=== PATIENT | female | born 1960 | race Asian ===

== ENCOUNTER 2022-01-20 13:21 | Emergency (ER) | payer MEDICAID ==
[~2022-01-20] VITALS: Ht 149.9 cm; Wt 56.7 kg
[2022-01-20 13:36] VITALS: BP 125/78
== END 2022-01-20 14:53 | disposition home or self-care (01) ==
LOC: ER 13:25
DX: H43.391 Other vitreous opacities, right eye (principal); I10 Essential (primary) hypertension

== ENCOUNTER 2022-03-06 16:08 | Emergency (ER) | payer SELFPAY ==
[~2022-03-06] VITALS: Ht 152.4 cm; Wt 57.2 kg
--- NOTE | 2022-03-06 16:36 | NUR ---
DR BYRNE AT BEDSIDE
[2022-03-06] MEDS ORDERED: CETI-90 PO (16:43)
--- NOTE | 2022-03-06 16:43 | NUR ---
SALES [employer] AT BEDSIDE
[2022-03-06] MEDS ORDERED: ONDANSETRON HCL/PF - ER 4 MG/2 ML VIAL IV ONE (17:30)
[2022-03-06] MEDS ORDERED: IV NS 0.9% 1,000 ML BAG IV ONE (17:30)
[2022-03-06] MEDS ORDERED: ONDANSETRON HCL/PF 4 MG/2 ML VIAL ONE (17:34)
--- NOTE | 2022-03-06 17:37 | NUR ---
PATIENT IN CT SCAN
[2022-03-06 17:46] LABS: BASOPHILS % (AUTO) 0.6 % (0.0-2.0); EOSINOPHILS % (AUTO) 0.7 % (0.0-6.0); HEMATOCRIT 40 % (33-45); HEMOGLOBIN 13.6 g/dL (11.5-14.8); LYMPHOCYTES # (AUTO) 1.8 K/uL (0.8-4.8); LYMPHOCYTES % (AUTO) 35.6 % (20.0-44.0); MEAN CORPUSCULAR HGB CONC 34 g/dl (31.0-36.0); MEAN CORPUSCULAR VOLUME 88 fL (82-100); MONOCYTES # (AUTO) 0.4 K/uL (0.1-1.30); MONOCYTES % (AUTO) 8.8 % (2.0-12.0); NEUTROPHILS # (AUTO) 2.7 K/uL (1.8-8.9); NEUTROPHILS % (AUTO) 54.3 % (43.0-81.0); PLATELET COUNT (AUTO) 233 K/uL (150-450); RED BLOOD CELL COUNT(AUTO) 4.57 MIL/uL (4.0-5.2)
[2022-03-06 18:09] LABS: CALCIUM, SERUM 8.8 mg/dL (8.5-10.1); CARBON DIOXIDE 30 mmol/L (21-32); CHLORIDE 100 mmol/L (98-107); CREATININE 1.1 mg/dL (0.6-1.3); GLUCOSE 159 mg/dL (74-106); POTASSIUM 2.9 mmol/L (3.5-5.1); SODIUM SERUM 140 mmol/L (136-145); UREA NITROGEN, BLOOD 13 mg/dL (7-18)
[2022-03-06 18:11] LABS: BILIRUBIN,DIRECT 0.1 mg/dL (0.0-0.2); BILIRUBIN,TOTAL 0.4 mg/dL (0.2-1.0)
[2022-03-06] MEDS ORDERED: POTA-58 PO (18:55)
[2022-03-06] MEDS ORDERED: POTASSIUM CHLORIDE 20 MEQ TAB.PRT.SR PO ONE ×2 (19:00→19:07)
--- NOTE | 2022-03-06 19:00 | NUR ---
IV removed. Catheter intact and site benign. Pressure and 4x4 applied to site. No bleeding noted.
--- NOTE | 2022-03-06 19:09 | NUR ---
K DUR PO GIVEN TO PT INDICATED, HOSEA WELL.
--- NOTE | 2022-03-06 19:20 | NUR ---
Patient discharged to home in stable condition. Written and verbal after care instructions given. Patient verbalizes understanding of instruction.
[2022-03-06 19:28] VITALS: BP 108/62
== END 2022-03-06 19:29 | disposition home or self-care (01) ==
LOC: ER 16:09
DX: R55 Syncope and collapse (principal); E87.6 Hypokalemia; I10 Essential (primary) hypertension
CPT/HCPCS: 99285; 96360; 70450; 71045; 93005; 85025; 80048; 80076; 36415; 84484; J7030; J2405

== ENCOUNTER 2024-11-20 12:25 | Emergency (ER) | payer MEDICAID ==
[~2024-11-20] VITALS: Ht 149.9 cm; Wt 57.2 kg
[~2024-11-20 12:25] MED LIST: CETI-90 PO; POTA-58 PO
[2024-11-20] MEDS ORDERED: PRED20TA PO (15:15)
[2024-11-20] MEDS ORDERED: EPIN0.3P3 IJ (15:15)
[2024-11-20 15:21] VITALS: BP 154/89; TEMP 98.2; O2SAT 98
== END 2024-11-20 15:21 | disposition home or self-care (01) ==
LOC: ER 12:35
DX: T78.40XA Allergy, unspecified, initial encounter (principal); I10 Essential (primary) hypertension; Z79.52 Long term (current) use of systemic steroids; Z79.899 Other long term (current) drug therapy; X58.XXXA Exposure to other specified factors, initial encounter
CPT/HCPCS: 99283; Q0163; J7512